=== PATIENT | male | born 1980 | race Caucasian/White ===

== ENCOUNTER 2017-08-03 23:10 | Emergency (ER) | payer OTHER ==
[~2017-08-03] VITALS: Ht 177.8 cm; Wt 127.0 kg
--- NOTE | ~2017-08-03 | CT4 ---
[facility] A Service of [facility] RADIOLOGY TEXT RESULTS PATIENT: MICHAEL GARZA LOCATION: SED : 78 UNIT #: [id number] AGE: [address]: Anastacio Street MD SEX: M ORDER DR: [id number] [place] [id number] MR#: [id number] Acc #: [id number] NAME: MICHAEL GARZA. : 1980 SEX: M STUDY DATE/TIME: 08/04/2017 0:14 UNIT: SED ROOM: STUDY DESCRIPTION: CT Abd and Pelv Wo Cont Attending Physician: Anastacio Street M.D. Ordering Physician: Anastacio Street M.D. Primary Care Physician: Primary Care Physician No MEDICAL IMAGING REPORT This report is preliminary unless electronic signature is present. EXAM CT abdomen and pelvis with contrast INDICATIONS Right flank pain and nausea beginning today. PROCEDURE Unenhanced CT of the abdomen and pelvis. The CT exam was performed with one or more of the following radiation dose reduction techniques: automatic exposure control, adjustment of mA and/or kV according to patient size, and iterative reconstruction. COMPARISON: 11/09/07 FINDINGS Abdomen without contrast: Included lung bases are clear. The liver, spleen, adrenal gland, pancreas and gallbladder have an unremarkable unenhanced appearance. Bowel loops are nondilated. No inflammatory change around the appendix. A 4-5 mm calculus in the right mid ureter. Mild hydronephrosis. There is a 8 mm calculus at the left UPJ. No significant hydronephrosis. Pelvis without contrast: No radiodense bladder calculus. No pelvic mass or fluid. No aggressive appearing bone lesion. IMPRESSION 1. 4 to 5 mm calculus in the right mid ureter with mild hydronephrosis. 2. 8 mm calculus at the left UPJ with no significant hydronephrosis. Dictated by... [facility] A Service of [facility] RADIOLOGY TEXT RESULTS PATIENT: MICHAEL GARZA LOCATION: SED : 78 UNIT #: [id number] AGE: [address]: Anastacio Street MD SEX: M ORDER DR: Asif Caldera M.D. THIS IS AN ELECTRONICALLY VERIFIED REPORT Asif Caldera M.D. at 08/04/2017 9:54 PM REJID/monse TD: 08/04/2017 11:16 JOB #: [id number] MEDICAL IMAGING REPORT Page 1 of 1
[~2017-08-03 23:10] MED LIST: ADVIL200 M1 DOB; IBUPROFEN800 MG PO; LISINOPRIL20 MG PO; NAPROXEN PO; PERCOCET PO
[2017-08-03] MEDS ORDERED: MEDROL DOSEPAK4 MG PO (23:27)
[2017-08-03] MEDS ORDERED: BP MED (23:28)
[2017-08-04 00:03] LABS: URINE SOURCE CLEAN CATCH
[2017-08-04 00:04] LABS: BASOPHIL# 0.1 X10e3 (0-0.3); BASOPHIL% 0.6 % (0-2.5); EOSINOPHIL% 0.3 % (0.0-7.0); HEMATOCRIT 43.9 % (38.0-50.0); HEMOGLOBIN 14.8 gm/dL (13.0-16.0); LYMPHOCYTE# 1.8 X10e3 (1.0-3.5); LYMPHOCYTE% 12.1 % (17.0-45.0); MEAN CELL VOLUME 92.8 FL (83-96); MEAN CORPUSCULAR HEMOGLOBIN 31.3 PG (28-34); MEAN CORPUSCULAR HGB CONC 33.8 g/dL (30-36); MEAN PLATELET VOLUME 7.7 FL (6.5-11.5); MONOCYTE# 1.1 X10e3 (0-1.0); MONOCYTE% 7.3 % (3.0-12.0); NEUTROPHIL# 12.1 X10e3 (1.5-7.1); NEUTROPHIL% 79.7 % (40-75); PLATELET COUNT 257 X10e3 (140-420); RED BLOOD COUNT 4.73 X10e (3.90-5.60); RED CELL DISTRIBUTION WIDTH 12.9 % (11.0-15.5); URINE APPEARANCE TURBID; URINE BLOOD 3+ (NEG); URINE COLOR RED; URINE GLUCOSE NEG (NORM); URINE KETONE 1+ (NEG); URINE LEUKOCYTE ESTERASE 1+ (NEG); URINE NITRATE POS (NEG); URINE PROTEIN 2+ (NEG); URINE SPECIFIC GRAVITY 1.025 (1.003-1.035); WHITE BLOOD COUNT 15.2 X10e3 (4.0-10.5)
[2017-08-04 00:06] LABS: MICRO INDICATED? YES; URINE BILIRUBIN NEG (NEG)
[2017-08-04 00:07] LABS: DIFF IND NO
[2017-08-04 00:08] LABS: CULTURE INDICATED? YES; URINE BACTERIA 1+ (NEG); URINE RBC 200-300 /[HPF] (0-2); URINE SQUAMOUS EPITHELIAL CELL FEW /[HPF]
[2017-08-04 00:15] LABS: ALBUMIN SERUM 4.1 g/dL (3.5-5.0); BILIRUBIN,TOTAL 0.6 mg/dL (0.2-2.0); BUN/CREATININE RATIO 25.45; CALCIUM SERUM 8.8 mg/dL (8.4-10.2); CREATININE SERUM 1.1 mg/dL (0.6-1.4); GLOM FILT RATE Estimated 84.7 mL/min (>60); POTASSIUM 3.5 mmol/L (3.5-5.1); PROTEIN TOTAL SERUM 6.9 g/dL (6.0-8.3)
== END 2017-08-04 02:18 | disposition home or self-care (01) ==
LOC: SED 23:10
DX: N13.2 Hydronephrosis with renal and ureteral calculous obstruction (principal); I10 Essential (primary) hypertension; Z79.899 Other long term (current) drug therapy
CPT/HCPCS: 36415; 74176; 80053; 81003; 85025; 87086; 96361; 96374; 96375; 99284; J0696; J2270; J2405